=== PATIENT | male | born 1980 | race Caucasian/White ===

== ENCOUNTER 2024-04-22 11:55 | Observation (INO) ==
--- NOTE | 2024-04-22 12:24 | Emergency Department Note ---
Impression & Plan Altered mental status Admission ED Provider Note HPI: History obtained from custodial staff at the bedside. The patient is a 44-year-old gentleman with unknown past medical history, presents the emergency department with a chief complaint of "altered mental status". Patient was [facility] in [facility] for exposing himself in public. According to staff at the bedside he has been disorganized and is not really able to speak or eat while he has been in the facility. He exhibits incoherent language and frequently stimulates himself in front of others. Patient was therefore sent to the ER to be assessed. On my assessment here in the ED the patient is not able to have a coherent conversation with me. He appears to be responding to internal stimuli. He is frequently gazing around the room and mumbling incoherent sentences. No reported recent trauma, the patient reportedly has been in the facility for about the past 5 or 6 weeks. ROS: - Per HPI Differential Diagnosis: Disorganized schizophrenia, intracranial injury to include stroke, hemorrhage, brain tumor, hepatic encephalopathy, polysubstance abuse, amongst other potential pathologies. *Outpatient medications and allergy history reviewed. PE: General: Alert, disheveled appearing HEENT: Normocephalic, trachea midline Eyes: Extraocular eye movement is intact, no scleral erythema Pulmonary: Clear to auscultation bilaterally, no wheezing Cardio: Regular rate and rhythm GI: Abdomen is soft to palpation : No suprapubic tenderness MSK: No evidence of trauma or malformation of the extremities, no edema Skin: No evidence of rash Neuro: Alert, no focal deficits Psychiatric: Patient is incoherent, difficulty making eye contact, frequently gazing around the room, appears to be responding to internal stimuli INDEPENDENT INTERPRETATIONS: awake overnight monitor: (As interpreted by myself): - An order was placed for continuous cardiac monitoring - Patient was noted to be in sinus rhythm with a rate of 55 EKG: (As interpreted by myself): Rate: 53 Rhythm: Sinus bradycardia Intervals: Within normal limits ST changes: No ST elevation Time: 1725 Interventions provided in ED: -IM Haldol, IM Ativan Medical Decision Making: Patient is incoherent, he does not have capacity to refuse care. He was somewhat combative with IV placement therefore was given IM Haldol and IM Ativan with good improvement in his agitation. Medical workup was initiated at this time, lab work shows a mild leukopenia 2.66, hemoglobin is normal, platelet count is normal, CMP does not show any critical findings. Alcohol level is negative, TSH is normal, ammonia level is normal. CT imaging of the head was obtained that does not show any evidence of any acute intracranial process. Given the patient's symptoms recently and his overall presentation I suspect that he is psychotic and reportedly does have a history of underlying schizophrenia. I did discuss the patient's presentation with the nursing geothermal powerplant supervisor at [facility], Mariaelena Hamlin, she does confirm that the patient has had weight loss recently, he is not eating his food and in fact is actually urinating on his food when they give it to him. He has been urinating off of the bunk beds and he has been decompensating over the past several weeks and not taking his medications at the facility. She states that they do not have the capacity to handle this patient currently and they do feel that he needs psychiatric care. Following discussion with case management, the patient is determined to not be a candidate for inpatient psychiatric care at an inpatient psychiatric facility secondary to his status as an inmate. He will therefore require medical admission and psychiatric consultation. Case was discussed with the on-call midlevel provider for [facility], Shari Burgos, as well as Dr. Garcia, and the patient was placed for admission in stable condition. Consultants/Discussions held with other healthcare providers: -Hospitalist, Dr. Garcia Disposition discussion held by myself with: -[facility] staff at the bedside Diagnosis: 1. Disorganized schizophrenia, acute Disposition: Admission Lion Garzon DO Emergency Medicine Past Med/Surg History Problem List (Updated 04/22/24 @ 18:03 by Lion Garzon DO) Altered mental status (Acute) Social History Smoking Status: Current every day smoker Preferred Language: Slovenian Feels Safe at Home: Yes Gender Identity: Male Allergies Allergies Allergy/AdvReac Type Severity Reaction Status Date / Time No Known Allergies Allergy Unverified 02/28/24 16:31 Home Meds Home Medications Medication Instructions Recorded Confirmed olanzapine 10 mg tablet 10 mg PO HS 04/22/24 04/22/24 Results & Data (ED) Vital Signs Vital Signs - 24 hr 04/22/24 11:58 04/22/24 13:20 04/22/24 13:21 Temperature 36.6 C Temperature Source Temporal Artery Scan Pulse Rate 81 Pulse Rate [Apical] 71 Respiratory Rate 18 12 Blood Pressure 120/73 Blood Pressure [Right Arm] 124/82 Blood Pressure Mean 88 Blood Pressure Mean [Right Arm] 96 Pulse Oximetry 96 100 100 Oxygen Delivery Method Room Air Room Air Sepsis Recent Fever Within 48 Hours No Sepsis New/Unexplained Change in Mental Status N/A Sepsis Action Taken by Nursing No Action Required 04/22/24 13:32 04/22/24 15:11 04/22/24 17:08 Temperature Temperature Source Pulse Rate 65 Pulse Rate [Apical] 51 L 53 L Respiratory Rate 12 15 Blood Pressure Blood Pressure [Right Arm] 114/75 94/58 L Blood Pressure Mean Blood Pressure Mean [Right Arm] 88 70 Pulse Oximetry 99 95 Oxygen Delivery Method Room Air Room Air Sepsis Recent Fever Within 48 Hours Sepsis New/Unexplained Change in Mental Status Sepsis Action Taken by Nursing 04/22/24 17:22 Temperature Temperature Source Pulse Rate 52 L Pulse Rate [Apical] Respiratory Rate Blood Pressure Blood Pressure [Right Arm] Blood Pressure Mean Blood Pressure Mean [Right Arm] Pulse Oximetry Oxygen Delivery Method Sepsis Recent Fever Within 48 Hours Sepsis New/Unexplained Change in Mental Status Sepsis Action Taken by Nursing Laboratory Data 04/22/24 14:17 04/22/24 14:17 Lab Results 04/22/24 04/22/24 Range/Units 14:17 14:30 WBC 2.66 L (4.8-10.8) K/ul RBC 5.12 (4.70-6.10) M/uL Hgb 14.5 (14.0-18.0) g/dl Hct 42.7 (42.0-52.0) % MCV 83.4 (80.0-100.0) fL MCH 28.3 (25.0-34.0) pg MCHC 34.0 (32.0-36.0) g/dL RDW Std Deviation 40.1 (36.4-46.3) fL RDW Coeff of Tl 13.2 (11.5-14.5) % Plt Count 158 (130-400) K/uL MPV 10.8 (9.4-12.4) fL Immature Gran % (Auto) 0.0 % Neut % (Auto) 55.9 % Lymph % (Auto) 31.2 % Nash % (Auto) 11.7 % Eos % (Auto) 0.4 % Baso % (Auto) 0.8 % Neut # (Auto) 1.49 (1.40-6.50) K/uL Lymph # (Auto) 0.83 L (1.20-3.40) K/uL Nash # (Auto) 0.31 (0.11-0.59) K/uL Eos # (Auto) 0.01 (0.00-0.50) K/uL Baso # (Auto) 0.02 (0.00-0.20) K/uL Immature Gran # (Auto) 0.00 L (0.01-0.20) K/uL Sodium 138 (136-145) mmol/L Potassium 3.9 (3.5-5.1) mmol/L Chloride 104 (98-107) mmol/L Carbon Dioxide 28 (21-32) mmol/L Anion Gap 6 (3-11) BUN 14 (6-23) mg/dl Creatinine 0.82 (0.6-1.4) mg/dl Est Cr Clr Drug Dosing 90.6 ml/min eGFR 112.47 BUN/Creatinine Ratio 17.1 (10-20) Glucose 89 (70-99(Fasting)) mg/dl Calcium 9.1 (8.6-10.3) mg/dl Total Bilirubin 0.8 (0.2-1.0) mg/dl AST 19 (13-39) U/L ALT 30 (7-52) U/L Alkaline Phosphatase 85 (34-104) U/L Ammonia 37.0 (18-72) umol/L Total Protein 6.6 (6.0-8.3) gm/dl Albumin 4.1 (3.4-5.0) gm/dl Globulin 2.5 (2.5-4.0) gm/dl Albumin/Globulin Ratio 1.6 (0.9-2) TSH 0.904 (0.300-4.500) uIu/ml Salicylates < 3.0 L (3.0-30) mg/dl Acetaminophen < 3 L (10-30) ug/ml Ethyl Alcohol mg/dL < 10.0 (<10.0) mg/dl Administered Medications Discontinued Medications Haloperidol Lactate (Haloperidol Lactate 5 Mg/Ml 1 Ml Vial) 5 mg IM NOW STA Stop: 04/22/24 12:56 Last Admin: 04/22/24 13:15 Dose: 5 mg Documented By: CEDRICK Lorazepam (Lorazepam 2 Mg/1 Ml Vial) 1 mg IV NOW STA Stop: 04/22/24 12:23 Last Admin: 04/22/24 15:06 Dose: Not Given Documented By: CEDRICK Lorazepam (Lorazepam 2 Mg/1 Ml Vial) 2 mg IM NOW STA Stop: 04/22/24 12:56 Last Admin: 04/22/24 13:15 Dose: 2 mg Documented By: CEDRICK Imaging Data Radiologist's Impression: Head CT 04/22/24 12:20 CT head/brain wo con CLINICAL HISTORY: 44 years-old Male with AMS. Acutely altered mental status TECHNIQUE: Multiple axial CT images of the head were obtained without contrast. A dose lowering technique was utilized adhering to the principles of ALARA. CT DOSE: 625.8 mGy.cm COMPARISON: None. FINDINGS: No acute intracranial hemorrhage, midline shift, intracranial mass, hydrocephalus, territorial ischemia or abnormal extra-axial collection. The calvarium is intact. The paranasal sinuses, mastoid air cells, and middle ear cavities are clear. IMPRESSION: No acute intracranial abnormality. ACT 112: Negative or not required by law. The above report was generated using voice recognition software. It may contain grammatical, syntax or spelling errors. Electronically signed by: Sid Tinsley M.D. 04/22/2024 3:46 PM Discharge Plan Visit Data Chief Complaint: Altered Mental Status Stated Complaint: ALTERED MENTAL STATUS,TAKING CLOSE OFF/PEEING, ETC ED Provider: Lion Garzon Discharge Problem: Altered mental status Forms Stand Alone Forms: My [facility] Prescriptions Prescriptions: No Action olanzapine 10 mg Tablet 10 mg PO HS Referrals Referrals: [facility] [Primary Care Provider] -
[2024-04-22] MEDS: LORazepam 2 MG/1 ML VIAL IM STA (13:15)
[2024-04-22] MEDS: HALOPERIDOL LACTATE 5 MG/ML 1 ML VIAL IM STA (13:15)
[2024-04-22 14:44] LABS: Basophils # (auto) 0.02 K/uL (0.00-0.20); Basophils % (auto) 0.8 %; Eosinophils # (auto) 0.01 K/uL (0.00-0.50); Eosinophils % (auto) 0.4 %; Hematocrit (blood only) 42.7 % (42.0-52.0); Hemoglobin 14.5 g/dl (14.0-18.0); Lymphocytes # (auto) 0.83 K/uL (1.20-3.40); Lymphocytes % (auto) 31.2 %; Mean Corpuscular Hemoglobin 28.3 pg (25.0-34.0); Mean Corpuscular Volume 83.4 fL (80.0-100.0); Mean Platelet Volume 10.8 fL (9.4-12.4); Monocytes # (auto) 0.31 K/uL (0.11-0.59); Monocytes % (auto) 11.7 %; Neutrophils # (auto) 1.49 K/uL (1.40-6.50); Neutrophils % (auto) 55.9 %; Platelet Count 158 K/uL (130-400); RDW Coefficient of Variation 13.2 % (11.5-14.5); RDW Standard Deviation 40.1 fL (36.4-46.3); Red Blood Count 5.12 M/uL (4.70-6.10); White Blood Count 2.66 K/ul (4.8-10.8)
[2024-04-22 14:53] LABS: Acetaminophen < 3 ug/ml (10-30); Salicylate < 3.0 mg/dl (3.0-30)
[2024-04-22 15:01] LABS: Albumin Globulin Ratio 1.6 (0.9-2); Albumin Level 4.1 gm/dl (3.4-5.0); BUN Creatinine Ratio 17.1 (10-20); Bilirubin,Total 0.8 mg/dl (0.2-1.0); Calcium 9.1 mg/dl (8.6-10.3); Creatinine Clr Calc Pharmacy 90.6 ml/min; Globulin 2.5 gm/dl (2.5-4.0); Potassium 3.9 mmol/L (3.5-5.1); Total Protein 6.6 gm/dl (6.0-8.3)
[2024-04-22] MEDS: LORazepam 2 MG/1 ML VIAL IV STA (15:06)
[2024-04-22 15:14] LABS: Thyroid Stimulating Hormone 0.904 uIu/ml (0.300-4.500)
--- NOTE | 2024-04-22 15:48 | CT Scan Report ---
CT head/brain wo con CLINICAL HISTORY: 44 years-old Male with AMS. Acutely altered mental status TECHNIQUE: Multiple axial CT images of the head were obtained without contrast. A dose lowering tech nique was utilized adhering to the principles of ALARA. CT DOSE: 625.8 mGy.cm COMPARISON: None. FINDINGS: No acute intracranial hemorrhage, midline shift, intracranial mass, hydrocephalus, territorial ischem ia or abnormal extra-axial collection. The calvarium is intact. The paranasal sinuses, mastoid air cells, and middle ear cavities are clear . IMPRESSION: No acute intracranial abnormality. ACT 112: Negative or not required by law. The above report was generated using voice recognition software. It may contain grammatical, syntax o r spelling errors. Electronically signed by: Sid Tinsley M.D. 04/22/2024 3:46 PM
--- NOTE | 2024-04-22 17:11 | History & Physical Report ---
Date of Service April 22, 2024 Assessment & Plan (1) Altered mental status: Plan: Possible Psychosis Patient is 44 year old male without known PMH presented to ER from [facility] for reported ongoing altered behavior. In skilled nursing was started on Zyprexa 10mg HS but it is reported he has been refusing to take. In ER patient patient was reported to be frequently gazing around the room and mumbling incoherent sentences. In ER he was given Ativan and Haldol IM. Upon my evaluation patient is sleeping, but arouses to voice and light touch. He refuses to speak to provider. He shakes his head "no" when asked if he is having any pain and shakes his head "no" when asked if he will speak. WBC: 2.6, otherwise labs unremarkable. Negative salicylates, acetaminophen and ETOH CT Head: no acute intracranial abnormality UA and urine drug screen pending Zyprexa IM prn agitation Psychiatry consult Snf guards at bedside (2) Sinus bradycardia: Plan: Initial ER vitals patient afebrile, P: 81, R: 18, BP 120/73, 96% on room air. During ER course patient noted to be bradycardic in the 50s, BP 114/75. Upon my evaluation heart rate in 50s and patient was sleeping. Patient awakened and heart rate up to 70s. EKG obtained sinus bradycardia per my interpretation Appears to be asymptomatic, however patient refuses to participate in conversation and exam Monitor on telemetry (3) Leukopenia: Plan: WBC: 2.6, Plt and LFTs WNL ?If possible side effect from Zyprexa Add peripheral smear Repeat CBC in am. If continues to be abnormal may require further workup Will hold home Zyrexa DVT Prophylaxis SCDs Unable to have code status discussion with pt Currently at [facility] Pt was seen and care coordinated with Dr Garcia. See addendum I spent a total of 60 minutes reviewing notes, outpatient records, labs, medication, coordinating, documenting and providing care for this patient excluding time spent in the performance of separately billed services. History of Present Illness Chief Complaint: "altered mental status" Primary Care Provider: [facility] Patient is 44 year old male without known PMH presented to ER from [facility] for reported ongoing altered behavior. Per chart review patient was seen at [facility] ER on 02/28/2024 when he was brought to ER by police after indecent exposure, and was released from longterm as he made bail. Per that ER note he had reported that he was from [place] and was unwilling to further answer questions from physician. Per note he was evaluated by case management as well and due to concern for abnormal behavior 302 petition was written and delegate was called and. Ultimately delegate had denied 302 and was discharged. Patient presents to ER today from [facility] for reported continued altered behavior. Reported patient is in longterm for exposing himself in public. It is reported staff at longterm have noted patient seems disorganized and refuses to speak to providers and has working diagnosis of psychosis. He is prescribed Zyprexa 10 mg nightly. It is reported that patient sometimes will refuse his meals and throw some food on the floor. Reported that he urinates wherever he wants to in his cell and often refuses clothing. Per longterm notes patient has been refusing to communicate with medical and psych providers. In ER patient patient was reported to be frequently gazing around the room and mumbling incoherent sentences. In ER he was given Ativan and Haldol IM. Upon my evaluation patient is sleeping, but arouses to voice and light touch. He refuses to speak to provider. He shakes his head "no" when asked if he is having any pain and shakes his head "no" when asked if he will speak. Unable to obtain PMH, Surgical History, Family History, or social history. Allergies Allergy/AdvReac Type Severity Reaction Status Date / Time No Known Allergies Allergy Unverified 02/28/24 16:31 Home Medications Medication Instructions Recorded Confirmed Type olanzapine 10 mg tablet 10 mg PO HS 04/22/24 04/22/24 History Past Med/Surg History Problem List (Updated 04/22/24 @ 18:50 by Nadine Burgos PA-C) Leukopenia Sinus bradycardia Altered mental status (Acute) Social History Smoking Status: Current every day smoker Preferred Language: Arabic Feels Safe at Home: Yes Gender Identity: Male Review of Systems Review of Systems: Unobtainable due to mental health condition Physical Exam Physical Exam: PE per Dr Garcia Results & Data Results & Data Vital Signs (Past 12 Hours) Vital Signs Temp Pulse Pulse Resp BP BP Pulse Ox 04/22/24 15:11 51 L 12 114/75 99 04/22/24 13:32 65 04/22/24 13:21 100 04/22/24 13:20 71 12 124/82 100 04/22/24 11:58 36.6 C 81 18 120/73 96 O2 Del Method 04/22/24 15:11 Room Air 04/22/24 13:32 04/22/24 13:21 Room Air 04/22/24 13:20 Room Air 04/22/24 11:58 Laboratory Results Short CBC 04/22/24 Range/Units 14:17 WBC 2.66 L (4.8-10.8) K/ul Hgb 14.5 (14.0-18.0) g/dl Hct 42.7 (42.0-52.0) % Plt Count 158 (130-400) K/uL BMP 04/22/24 14:17 Sodium 138 Potassium 3.9 Chloride 104 Carbon Dioxide 28 BUN 14 Creatinine 0.82 Glucose 89 Calcium 9.1 Liver Function 04/22/24 Range/Units 14:17 Total Bilirubin 0.8 (0.2-1.0) mg/dl AST 19 (13-39) U/L ALT 30 (7-52) U/L Alkaline Phosphatase 85 (34-104) U/L Albumin 4.1 (3.4-5.0) gm/dl Diagnostic Findings Head CT 04/22/24 12:20 CT head/brain wo con CLINICAL HISTORY: 44 years-old Male with AMS. Acutely altered mental status TECHNIQUE: Multiple axial CT images of the head were obtained without contrast. A dose lowering technique was utilized adhering to the principles of ALARA. CT DOSE: 625.8 mGy.cm COMPARISON: None. FINDINGS: No acute intracranial hemorrhage, midline shift, intracranial mass, hydrocephalus, territorial ischemia or abnormal extra-axial collection. The calvarium is intact. The paranasal sinuses, mastoid air cells, and middle ear cavities are clear. IMPRESSION: No acute intracranial abnormality. ACT 112: Negative or not required by law. The above report was generated using voice recognition software. It may contain grammatical, syntax or spelling errors. Electronically signed by: Sid Tinsley M.D. 04/22/2024 3:46 PM ECG Additional Comments: EKG sinus bradycardia, rate 53 per my interpretation Supervising Physician Co-Signing Physician Notes Patient is a 44-year-old male presented from correctional facility with altered behavior. Patient refuses to provide any history. Unsure if patient has histo ry of schizophrenia in the past. Patient was evaluated 2 months ago in ED for indecent exposure and was released from longterm as he bailed at the time. Patient was brought back from correctional facility today with altered behavior as reported in HPI. Please review HPI for complete details. I personally reviewed blood work and imaging studies. CT head showed no acute process. Noted leukopenia. Physical Exam: Vitals signs as noted above General Appearance:Moderately built and nourished, no apparent distress Head: normocephalic, Atraumatic Eyes: normal inspection, EOMI Neck: supple, Trachea midline Respiratory/Chest: Normal breath sounds, CTA, No accessory muscle use Cardiovascular: S1, S2, No murmur, bradycardia Abdomen/GI:Soft, Non tender, Bowel sounds present Extremities/Musculoskeletal:normal inspection, no edema Neurologic/Psych: Alert, awake, grossly no focal neurological deficits, unable to perform complete neurological exam as patient not cooperative Skin: normal color, warm Altered mental status Possible psychosis/schizophrenia/paranoia CT head showed no acute process Zyprexa as needed Psychiatry consulted Sinus bradycardia Avoid AV maureen blocking agents Monitor Leukopenia Agree with checking peripheral smear Monitor CBC I personally interviewed and examined at bedside. Patient's care is coordinated with Nadine Burgos PA-C. I have reviewed the advanced practitioner's documentation, and I agree with plan of care. Please refer to the documentation above for details of patient's presentation and for discussion of other issues. I spent a total [id number] coordinating, documenting, and providing care for this patient excluding time spent in the performance of separately billed services.
[2024-04-22] MEDS ORDERED: POLYETHYLENE (MIRALAX) 17 GM PACK PO PRN ×2 (19:32)
[2024-04-22] MEDS ORDERED: PROMETHAZINE 6.25 MG/50.25 ML BAG IV PRN ×2 (19:32)
[2024-04-22] MEDS ORDERED: ACETAMINOPHEN 325 MG TAB PO PRN ×2 (19:32)
[2024-04-22] MEDS ORDERED: OLANZapine 10 MG/2.1 ML SDV IM PRN (19:32)
[2024-04-22] MEDS: SODIUM CHLORIDE 0.9% 1,000 ML IV ONE (20:44)
[2024-04-23 07:43] LABS: Basophils # (auto) 0.02 K/uL (0.00-0.20); Basophils % (auto) 0.6 %; Eosinophils # (auto) 0.09 K/uL (0.00-0.50); Eosinophils % (auto) 2.5 %; Hematocrit (blood only) 41.1 % (42.0-52.0); Hemoglobin 13.9 g/dl (14.0-18.0); Immature Granulocytes # (auto) 0.01 K/uL (0.01-0.20); Immature Granulocytes % (auto) 0.3 %; Lymphocytes # (auto) 1.54 K/uL (1.20-3.40); Lymphocytes % (auto) 43.3 %; Mean Corpuscular Hgb Conc 33.8 g/dL (32.0-36.0); Mean Corpuscular Volume 85.8 fL (80.0-100.0); Monocytes # (auto) 0.45 K/uL (0.11-0.59); Monocytes % (auto) 12.6 %; Neutrophils # (auto) 1.45 K/uL (1.40-6.50); Neutrophils % (auto) 40.7 %; Platelet Count 158 K/uL (130-400); RDW Coefficient of Variation 13.2 % (11.5-14.5); RDW Standard Deviation 41.6 fL (36.4-46.3); Red Blood Count 4.79 M/uL (4.70-6.10); White Blood Count 3.56 K/ul (4.8-10.8)
[2024-04-23 08:08] LABS: BUN Creatinine Ratio 14.3 (10-20); Calcium 8.9 mg/dl (8.6-10.3); Creatinine Clr Calc Pharmacy 88.5 ml/min; Potassium 4.1 mmol/L (3.5-5.1)
--- NOTE | 2024-04-23 08:29 | Electrocardiogram Report ---
Test Reason : Blood Pressure : */* mmHG Vent. Rate : 53 BPM Atrial Rate : 53 BPM P-R Int : 156 ms QRS Dur : 80 ms QT Int : 418 ms P-R-T Axes : 54 94 74 degrees QTcB Int : 392 ms Sinus bradycardia Rightward axis Borderline ECG No previous ECGs available Confirmed by Binu Ochoa ([id number]) on 04/23/2024 8:28:43 AM Referred By: [facility] Confirmed By: Binu Ochoa
--- NOTE | 2024-04-23 12:22 | Psychiatric Consultation ---
Date of Consultation April 23, 2024 Impression / Recommendations Impression Diagnostically consistent with unspecified psychosis with some suspicion for malingering or at minimum a volitional behavioral component to his presentation but also with reported history of schizophrenia. Differential also includes delirium (could be more consistent with loosened associations) vs catatonia (though eating at detention and moving around per shelter staff and intermittent verbal responses inconsistent with mutism that would be anticipated and no stereotypies observed nor frozen postures) vs substance-induced/withdrawal (would not anticipate such a prolonged duration of symptoms) vs depression with psychotic features (would be highly atypical). Initial concern for primary psychotic disorder such as schizophrenia however then observed behaviors clearly volitional in nature such as refusing to open his eyes while meeting until the moment I stepped out of the room and making whispered statements that initially seemed potentially consistent with psychosis but did not present as would be anticipated (i.e. not responding to internal stimuli in a more typical manner though possible, doesn't present as the classic form of thought blocking, no evidence for delusions except possibly hypers exual/paranoid?, make intense eye contact that is abnormal in someone experiencing such a degree of paranoia that they are not comfortable speaking, seemed to be trying to shifts eyes as though acting out how one might present if responding to visual hallucinations but in a manner that feels abnormal/volitionally driven). Rather blurted out a few disjointed statements with loosening of associations but in response to non-related questions and when I stated my concerns this could be behavioral he started to suddenly make a lot of meaningless, garbled vocalizations, seemingly in an effort to convince me he was experiencing psychosis. High suspicion that his toileting refusals, medication refusal and frequent napping/lying on the floor in the detention and not responding to questions is in an effort to appear psychotic but lessening suspicion for this. However, reports of disrobing and stimulating himself in front of others could respresent an atypical psychosis or paraphilia (exhibitionistic or frotteuristic). Overall, I spent a total of 60 minutes with this case including review of chart records, review of labwork, review of EKG QTc, direct evaluation of the patient at bedside, counseling the patient, discussion of the patient with the Nurse and with the hospitalist provider, discussion with the psychiatric liason during clinical rounds and documentation in the electronic health record. (1) Unspecified psychosis not due to a substance or known physiological condition: (2) Paraphilia: Plan -High suspicion for malingering/secondary gain vs paraphilic disorder but difficult to determine without ability to observe him in detention setting and over time or knowing how his schizophrenia (if accurate) typically presents. -Reasonable to continue to try antipsychotic medications, if clinical presentation improves with antipsychotic medication then would suggest primary psychotic disorder is more likely. * Given report he is often sleeping during the day at the detention would consider use of something less sedating than olanzapine. Consider: abilify 15mg daily or risperidone 1mg BID po * Could trial high dose SSRI such as Paxil in the future to help with hypersexual behaviors if low concern for breanne and ongoing exhibitionism -For behavioral emergency: haldol 5 mg po/IM, benadryl 50mg po/IM and ativan 2mg po/IM (check EKG if IM dose required, only use ativan if QTc is >500ms). -Psychiatry to sign off -Liaison remains available should an acute behavioral management issue arise while hospitalized (code pena). Generally goals for management of concern of secondary gain include: -Minimizing reinforcement, treat medical concerns promptly will goals of returning to shelter once medically stable Psych History Identifying Data 44 yo man with possible history of schizophrenia per chart review and currently incarcerated at [facility] admitted medically for altered mental status. Psychiatry consulted for recommendations for "incoherent thoughts". Chief Complaint "F*cking parking lot, you were there". History of Present Illness Most history per chart review and reports by guards at bedside as Buzz initially appears asleep, then when awake declines to open his eyes. Seen again later mid- morning he was awake and made intense eye contact but would not communicate exce pt for a few brief mumbled statements with only coherent statement as noted in the chief complaint. Appears he was initially brought to the ED in February 2024 for concern for psychosis by police after episode of indecent exposure and his request to be brought to the hospital. While in the hospital he refused to sign in and also refused to leave, refused to answer most questions but was A&Ox4 per chart and reported being from [place]. Ultimately he was discharged as was not found to meet 302 criteria. Was brought in for this stay by shelter guards for altered mental status. Apparently at the shelter, where he has been for the last 5-6 weeks, has been spending most of the day lying curled up and won't communicate. Eats his meals typically about 75%. Will sometimes urinate on the floor. Apparently has been exhibiting mumbling responses, responding to internal stimuli and stimulating himself in front of others. Senior Living guards report he sleeps or appears to sleep most of the day but moves about easily when he decides to. Has apparently been refusing psychiatric medication ordered. Allergies Allergy/AdvReac Type Severity Reaction Status Date / Time No Known Allergies Allergy Unverified 02/28/24 16:31 Home Medications Medication Instructions Recorded Confirmed Type aripiprazole 15 mg tablet (Abilify) 15 mg PO QAM #30 tabs 04/23/24 Rx Patient History Social History Tobacco Cessation Education Requested by Patient: No Preferred Language: Georgian Communication Ability: Impaired [employer] Required: No Beliefs That Will Affect Care: None Current Living Situation: Other Current Living Situation Comment: [facility] Feels Safe at Home: Declines to Answer Gender Identity: Male Assistive Devices: None Physical Exam Psychiatric: Orientation: alert and + guarded Apperance: appropriately dressed and + disheveled Eye Contact: + poor eye contact (poor and then very intense) Motor Behavior: no abnormal motor movements Speech: + mute (except for periods of brief mumbled comments) Affect: + flat affect Thought Process: + thought blocking and + looseness of associations Insight: + poor insight Judgment: + poor judgement Vital Signs (Past 24 Hours): Last Vital Signs Temp 36.6 C 04/23/24 11:37 Pulse 60 04/23/24 11:37 Resp 20 04/23/24 11:37 BP 116/72 04/23/24 11:37 Pulse Ox 97 04/23/24 11:37 O2 Del Method Room Air 04/23/24 11:37 Review of Systems Unobtainable due to mental health condition Coding Level of Care Code 69562 IN/OBS CONSULT LVL 4,60M Diagnoses Unspecified psychosis not due to a substance or known physiological condition F29 Paraphilia F65.9
[2024-04-23 15:11] VITALS: BP 109/70; RESP 18; TEMP 98.2; O2SAT 94
[2024-04-23 15:20] VITALS: PULSE 53
--- NOTE | 2024-04-23 15:20 | Discharge Summary ---
Date of Service April 23, 2024 Admission HPI Per Admitting Provider Patient is 44 year old male without known PMH presented to ER from [facility] for reported ongoing altered behavior. Per chart review patient was seen at [facility] ER on 02/28/2024 when he was brought to ER by police after indecent exposure, and was released from prison as he made bail. Per that ER note he had reported that he was from [place] and was unwilling to further answer questions from physician. Per note he was evaluated by case management as well and due to concern for abnormal behavior 302 petition was written and delegate was called and. Ultimately delegate had denied 302 and was discharged. Patient presents to ER today from [facility] prison for reported continued altered behavior. Reported patient is in prison for exposing himself in public. It is reported staff at prison have noted patient seems disorganized and refuses to speak to providers and has working diagnosis of psychosis. He is prescribed Zyprexa 10 mg nightly. It is reported that patient sometimes will refuse his meals and throw some food on the floor. Reported that he urinates wherever he wants to in his cell and often refuses clothing. Per prison notes patient has been refusing to communicate with medical and psych providers. In ER patient patient was reported to be frequently gazing around the room and mumbling incoherent sentences. In ER he was given Ativan and Haldol IM. Upon my evaluation patient is sleeping, but arouses to voice and light touch. He refuses to speak to provider. He shakes his head "no" when asked if he is having any pain and shakes his head "no" when asked if he will speak. Unable to obtain PMH, Surgical History, Family History, or social history. Admission Exam Per Admitting Provider General Appearance:Moderately built and nourished, no apparent distress Head: normocephalic, Atraumatic Eyes: normal inspection, EOMI Neck: supple, Trachea midline Respiratory/Chest: Normal breath sounds, CTA, No accessory muscle use Cardiovascular: S1, S2, No murmur, bradycardia Abdomen/GI:Soft, Non tender, Bowel sounds present Extremities/Musculoskeletal:normal inspection, no edema Neurologic/Psych: Alert, awake, grossly no focal neurological deficits, unable to perform complete neurological exam as patient not cooperative Skin: normal color, warm Principal Diagnosis unspecified psychosis with some suspicion for malingering Discharge Exam General Appearance:Moderately built and nourished, no apparent distress Head: normocephalic, Atraumatic Eyes: normal inspection, EOMI Neck: supple, Trachea midline Respiratory/Chest: Normal breath sounds, CTA, No accessory muscle use Cardiovascular: S1, S2, No murmur, bradycardia Abdomen/GI:Soft, Non tender, Bowel sounds present Extremities/Musculoskeletal:normal inspection, no edema Neurologic/Psych: Alert, awake, grossly no focal neurological deficits, unable to perform complete neurological exam as patient not cooperative Skin: normal color, warm Discharge Data Allergies Allergy/AdvReac Type Severity Reaction Status Date / Time No Known Allergies Allergy Unverified 02/28/24 16:31 Consultations 04/22/24 16:14 ED Decision to Admit Stat 04/22/24 19:32 Consult Psychiatry Routine Ordered Studies 04/22/24 12:20 CT head/brain wo con Stat Hospital Course (1) Altered mental status: per prior attending with addendum: Possible Psychosis Patient is 44 year old male without known PMH presented to ER from [facility] for reported ongoing altered behavior. In fdc was started on Zyprexa 10mg HS but it is reported he has been refusing to take. In ER patient patient was reported to be frequently gazing around the room and mumbling incoherent sentences. In ER he was given Ativan and Haldol IM. Upon my evaluation patient is sleeping, but arouses to voice and light touch. He refuses to speak to provider. He shakes his head "no" when asked if he is having any pain and shakes his head "no" when asked if he will speak. WBC: 2.6, otherwise labs unremarkable. Negative salicylates, acetaminophen and ETOH CT Head: no acute intracranial abnormality UA and urine drug screen pending Zyprexa IM prn agitation Psychiatry consult Shelter guards at bedside (2) Sinus bradycardia: Initial ER vitals patient afebrile, P: 81, R: 18, BP 120/73, 96% on room air. During ER course patient noted to be bradycardic in the 50s, BP 114/75. Upon my evaluation heart rate in 50s and patient was sleeping. Patient awakened and heart rate up to 70s. EKG obtained sinus bradycardia per my interpretation Appears to be asymptomatic, however patient refuses to participate in conversation and exam Monitor on telemetry (3) Leukopenia: WBC: 2.6, Plt and LFTs WNL ?If possible side effect from Zyprexa Add peripheral smear Repeat CBC in am. If continues to be abnormal may require further workup Will hold home Zyrexa DVT Prophylaxis SCDs Unable to have code status discussion with pt Currently at [facility] Pt was seen and care coordinated with Dr Garcia. See addendum I spent a total of 60 minutes reviewing notes, outpatient records, labs, medication, coordinating, documenting and providing care for this patient excluding time spent in the performance of separately billed services. Plan Addendum 04/23/2024: Patient was seen and examined at bedside as a follow-up of possible psychosis with component of malingering, sinus bradycardia, leukopenia. Leukopenia is improving, Zyprexa has been discontinued. Sinus bradycardia has been asymptomatic and in high 50s to normal heart rate. Patient with no complaints. Discussed with psychiatry, plan to DC olanzapine and start him on Abilify. There is concern of component of malingering, could be psychosis as well. Patient not cooperative. psychiatry okay with discharge from their point of view. Since no acute medical issues, patient is being discharged back to correctional facility, called [facility] fdc and signed out to medical department. Home Health Attestation I certify that this patient is under my care and that I, or a physicians financial planning assistant working with me, had a face to-face encounter that meets the home health [id number] encounter requirements with this patient. The encounter with the patient was in whole, or in part, for the following medical condition, which is the primary reason for home health care (list medical condition): I certify that, based on my findings, the following services are medically necessary home health services: My clinical findings support the need for the above services because: Further, I certify that my clinical findings support that this patient is homebound (i.e. absences from home require considerable and taxing effort and are for medical reasons or restoration services or infrequently or of short du ration when for other reasons) because: Certification for Home Health Services: Based on the above findings, I certify that this patient is confined to the home and needs intermittent [facility] care, physical therapy and/or speech therapy or continues to need occupational therapy. The patient is under my care, and I have initiated the establishment of the plan of care. This patient will be followed by a physician who will periodically review the plan of care. Total Time Total Time Spent Total Time Spent (In Minutes): 40 Discharge Plan Discharge Items Patient Disposition: Correctional Facility Reason For Visit: PSYCH SYMPTOMS Discharge Diagnosis: unspecified psychosis with some suspicion for malingering Activity: Resume your previous activity Non-emergency contact: Primary Care Provider Call non-emergency contact if: you have any medication questions Follow-up/Referrals: [facility] [Primary Care Provider] - Diet: Regular Addtl Attending Provider Instructions: You are being discharged back to correctional facility, your olanzapine has been discontinued, you are being started on Abilify. Follow-up with your psychiatry as an outpatient. Follow-up with a primary care provider in a week time upon discharge, you will need repeat labs including CBC/CMP to ensure resolution of your leukopenia. Pending Studies at Discharge: No Stand-Alone Forms: My [facility] Skilled Items Patient informed of condition?: Yes Discharge Level of Care: Other Communicable Disease: No Discharge Prognosis: Stable Lines: None Urinary Catheter: No Medications and DC Order Prescriptions: New aripiprazole [Abilify] 15 mg Tablet 15 mg PO QAM Qty: 30 0RF Discontinued olanzapine 10 mg Tablet 10 mg PO HS Discharge Orders: Discharge Order (Routine); Ordered 04/23/24 Ordered By: Suzanne Rock Admission Data Admit Date/Time: 04/22/24 17:09 Attending Provider: Suzanne Rock Admit Provider: Se Garcia Primary Care Provider: [facility] Other Providers: Se Gracia; Karen Salazar; Shon Jj; Char Tolbert; Leia Cantu; Ramon Post; Rosalinda Gilliland
[2024-04-24] MEDS ORDERED: ARIPiprazole 15 MG TAB PO SCH (09:00)
== END 2024-04-23 17:33 | DRG 885 ==
LOC: ED 11:55 → INTOOBSV 17:09 → SUATTDRO 17:09 → EDINP 17:09 → 2W 19:33